=== PATIENT | male | born 1955 | race Caucasian/White ===

== ENCOUNTER 2016-10-28 13:11 | Emergency (ER) | payer MEDICARE, MEDICAID ==
[~2016-10-28 13:11] MED LIST: ASA CHILDREN'S81 MG PO; GLUCOPHAGE-DPS500 MG PO; RISPERDAL2 MG PO; SEROQUEL DPS100 MG PO; SYMBICORT160 MCG/6 IH; TYLENOL DPS325 MG PO
--- NOTE | 2016-11-14 15:00 | ER ---
ADMIT: 10/28/2016 RM/LOC: ER [facility] MR#: [id number] [address] [id number] ROSA MARIA PATRICK [address] [place] [address] Emergency Room Report SEX: M AGE: 61 : 1955 DATE: 10/28/2016 CHIEF COMPLAINT: Left eye swelling. HISTORY OF PRESENT ILLNESS: Pleasant 61-year-old white male, who presents with for 3 hours duration of some left eye swelling. The patient states he did not notice it, some co-workers of his noticed he had some swelling below his left eye today. Denies any pain or known injury. No known sick contacts. He does wear glasses. Follows with optometry at the [facility]. No contact. No known chemical exposure. No insect bites. is concerned that this could be early signs of a sinus infection today. No recent illness, fever, nasal drainage, vomiting, chest pain, shortness of breath, or cough. PAST MEDICAL HISTORY: Significant for splenectomy. COURSE IN THE EMERGENCY ROOM: The patient was seen and examined. He is afebrile and nontoxic. He has very mild swelling below the left eye. He does have some erythema about the lacrimal sac. No tenderness to palpation. No pain with extraocular eye movements. Pupils equal and reactive to light. Nose nonedematous. Neck is soft and nontender. No lymphadenopathy. Lungs are clear. IMPRESSION: Left eye swelling, possibly allergic in nature. DISPOSITION: The patient was given dexamethasone 10 mg IM, continue to monitor the eye for any signs and symptoms. If there are concerning symptoms, they needs [facility] saw operator if this is not improving. Certainly return with any worsening signs or symptoms. Questions sought and answered to best of my ability to the patient's satisfaction. Discharged in stable condition. SHARMIN Morin / Dhaval Banks MD / jenny JOB #: [id number] CC: Dhaval Banks MD, Attending Physician
== END 2016-10-28 14:24 | disposition home or self-care (01) ==
LOC: ER 13:11
DX: H02.845 Edema of left lower eyelid (principal); F31.9 Bipolar disorder, unspecified; E11.9 Type 2 diabetes mellitus without complications; Z79.84 Long term (current) use of oral hypoglycemic drugs; Z79.899 Other long term (current) drug therapy; Z90.81 Acquired absence of spleen

== ENCOUNTER 2016-12-15 11:24 | Emergency (ER) | payer MEDICARE, MEDICAID ==
--- NOTE | 2016-12-17 10:39 | ER ---
ADMIT: 12/15/2016 RM/LOC: ER [facility] MR#: [id number] [address] [place], [place] [address] ROS[address] MARIA PATRICK [address] [place] [address] Emergency Room Report SEX: M AGE: 61 : 1955 DATE: 12/15/2016 TIME: 1124 hours. Please refer to my T-sheet for complete H and P. Briefly, the patient is a 61-year-old who comes in with cough and fever, it has been going on about a week. He noticed his sugars have been running a little bit high. He continues to smoke. He is bringing up some phlegm. He has had a little bit of runny nose. [facility]. He smokes a pack a day. PHYSICAL EXAMINATION: VITAL SIGNS: Blood pressure 149/73, pulse 137, respirations 24, temp 99.1, and sat 93%. GENERAL: He is in no acute distress. HEENT: Mild rhinorrhea. Throat clear. NECK: Soft, supple. No meningismus. LUNGS: Slightly coarse with expiratory wheezes. HEART: Tachy, regular. ABDOMEN: Soft, nontender. EXTREMITIES: Trace edema. EMERGENCY DEPARTMENT COURSE: We did whole sepsis panel. His chest x-ray revealed a little atelectasis, right lower lobe. No major lobar infiltrate. EKG was sinus tach, rate 110. No changes. Lactate was 2.4. Cardiac enzymes negative. CBC normal except white count 12.8, hemoglobin 13, and platelets 468. Chemistries normal except glucose 142. Coags normal. Blood cultures x2 were sent. We gave him a DuoNeb, a liter of normal saline bolus, 1 g of Tylenol, prednisone 40 p.o., Levaquin 500 p.o., albuterol MDI 2 puffs with teaching. He was doing much better. His vital signs improved. Long discussion with him, he is ready for discharge. ASSESSMENT: 1. Chronic obstructive pulmonary disease with exacerbation. 2. Bronchitis. 3. Nicotine abuse. PLAN: Stop smoking. Levaquin 500 a day for total of 7 days, prednisone 40 a day for a total of 5 days, albuterol MDI q.4 hours p.r.n. Return if worse. [facility] this [facility]. Jesus Palmer MD/ jenny JOB #: [id number] CC: Jesus Palmer MD, Attending Physician Hallie Yañez MD, Family Physician
== END 2016-12-15 14:00 | disposition home or self-care (01) ==
LOC: ER 11:24
DX: J44.1 Chronic obstructive pulmonary disease with (acute) exacerbation (principal); F17.210 Nicotine dependence, cigarettes, uncomplicated; E11.9 Type 2 diabetes mellitus without complications; F31.9 Bipolar disorder, unspecified; Z98.890 Other specified postprocedural states; Z90.81 Acquired absence of spleen; Z79.82 Long term (current) use of aspirin; Z79.84 Long term (current) use of oral hypoglycemic drugs; Z79.899 Other long term (current) drug therapy